=== PATIENT | female | born 1995 | race Caucasian/White ===

== ENCOUNTER 2019-06-10 11:18 | Emergency (ER) | payer SELFPAY ==
[2019-06-10] MEDS ORDERED: Lidocaine 2% Viscous Solution 15 ML Cup PO ONE (11:57)
[2019-06-10] MEDS ORDERED: Benzocaine 20% Topical Spray UD MUCMEM ONE (11:57)
--- NOTE | 2019-06-10 12:19 | EDM.PDOC ---
ED HPI GENERAL MEDICAL PROBLEM - General Chief Complaint: General Stated Complaint: MOUTH COMPLAINT Time Seen by Provider: 06/10/19 11:49 Source of Information: Reports: Patient History Limitations: Reports: No Limitations - History of Present Illness INITIAL COMMENTS - FREE TEXT/NARRATIVE: HISTORY AND PHYSICAL: History of present illness: Patient is a 24-year-old female who presents to the emergency room with complaints of some irritation along the lower gumline in her mouth. She states she is also had some vaginal irritation/discomfort. Denies any vaginal discharge , odor, or irregular bleeding. She has recently moved to [place] to be with her and had recently began having oral and vaginal intercourse ( states they hadn't had sex in awnhle due to distance). She is concerned she may have an STD in her mouth. Review of systems: As per history of present illness and below otherwise all systems reviewed and negative. Past medical history: As per history of present illness and as reviewed below otherwise noncontributory. Surgical history: As per history of present illness and as reviewed below otherwise noncontributory. Social history: See social history for further information Family history: As per history of present illness and as reviewed below otherwise noncontributory. Physical exam: General: Well-developed and well-nourished 24-year-old female. Alert and oriented. Nontoxic-appearing and in no acute distress. Patient has 2 small children with her at bedside. HEENT: Atraumatic, normocephalic, pupils equal and reactive bilaterally, negative for conjunctival pallor or scleral icterus, mucous membranes moist, irritation noted to the lower gumline along the bottom front teeth with small ulceration noted consistent with canker sore, TMs normal bilaterally, throat clear, neck supple, nontender, trachea midline. No drooling or trismus noted. No meningeal signs. No hot potato voice noted. Lungs: Clear to auscultation, breath sounds equal bilaterally, chest nontender. Heart: S1S2, regular rate and rhythm without overt murmur Abdomen: Soft, nondistended, nontender. Negative for masses or hepatosplenomegaly. Negative for costovertebral tenderness. Pelvis: Stable nontender. Skin: Intact, warm, dry. No lesions or rashes noted. Extremities: Atraumatic, moves all extremities per self without difficulty or deficits, negative for cords or calf pain. Neurovascular unremarkable. Neuro: Awake, alert, oriented. Cranial nerves II through XII unremarkable. Cerebellum unremarkable. Motor and sensory unremarkable throughout. Exam nonfocal. Notes: Patient declines wanting to have a pelvic exam. She is agreeable to swabbing per self and waiting for the testing to return. She is aware that gonorrhea and chlamydia as a send out. We did discuss in great length that she needs to establish care and follow-up with primary or RESIDENTIAL PROGRAM COORDINATOR for further evaluation and management. Supportive care measures were reviewed and discussed. Voices understanding and is agreeable to plan of care. Denies any further questions or concerns at this time. Diagnostics: Chlam/Giuseppe, Tric/BV Therapeutics: Dental Balls Prescription: Flagyl, Diflucan Impression: Bacterial vaginosis Candidiasis Canker sore Plan: 1. Please abstain from sexual intercourse until the lab results have returned. Always use protection to minimized risk of STD exposure 2. Take the medications as directed. The gonorrhea and chlamydia tests are send out labs, therefore will not be available for 2-3 business days. 3. Please follow-up with your primary care provider in the next 1-2 days. [facility] does offer free STD testing, please follow-up with them for further STD testing needs. Return to the ED as needed and as discussed. Definitive disposition and diagnosis as appropriate pending reevaluation and review of above. lower dental Pain Score (Numeric/FACES): 10 - Related Data Allergies Allergy/AdvReac Type Severity Reaction Status Date / Time No Known Allergies Allergy Verified 06/10/19 11:43 Home Meds: Home Meds . [No Known Home Meds] 06/10/19 [History] Past Medical History HEENT History: Reports: None Cardiovascular History: Reports: None Respiratory History: Reports: None Gastrointestinal History: Reports: None Genitourinary History: Reports: None RESIDENTIAL PROGRAM COORDINATOR History: Reports: None, Musculoskeletal History: Reports: None Neurological History: Reports: None Psychiatric History: Reports: None Endocrine/Metabolic History: Reports: None Hematologic History: Reports: None Immunologic History: Reports: None Oncologic (Cancer) History: Reports: None Dermatologic History: Reports: None - Past Surgical History Head Surgeries/Procedures: Reports: None HEENT Surgical History: Reports: None Cardiovascular Surgical History: Reports: None Respiratory Surgical History: Reports: None GI Surgical History: Reports: None Female Surgical History: Reports: Section Endocrine Surgical History: Reports: None Neurological Surgical History: Reports: None Musculoskeletal Surgical History: Reports: None Oncologic Surgical History: Reports: None Dermatological Surgical History: Reports: None Social & Family History - Family History Family Medical History: Noncontributory - Tobacco Use Smoking Status *Q: Current Every Day Smoker Years of Tobacco use: 7 Packs/Tins Daily: 1 - Caffeine Use Caffeine Use: Reports: None - Recreational Drug Use Recreational Drug Use: No ED ROS GENERAL - Review of Systems Review Of Systems: Comprehensive ROS is negative, except as noted in HPI. ED EXAM, GENERAL - Physical Exam Exam: See Below (See dictation) Course - Vital Signs Last Recorded V/S: Last Vital Signs Temp 97.3 F 06/10/19 11:43 Pulse 83 06/10/19 11:43 Resp 18 06/10/19 11:43 BP 112/49 L 06/10/19 11:43 Pulse Ox 98 06/10/19 11:43 - Orders/Labs/Meds Orders: Active Orders 24 hr Category Date Time Status CHLAMYDIA AND GONORRHEA BY TMA Stat Lab 06/10/19 11:56 Received Labs: Laboratory Tests 06/10/19 Range/Units 11:56 Irlanda species DNA POSITIVE H (NEGATIVE) Gardnerella DNA Probe POSITIVE H (NEGATIVE) Trichomonas DNA Probe NEGATIVE (NEGATIVE) Meds: Medications Discontinued Medications Generic Name Dose Route Start Last Admin Trade Name Freq PRN Reason Stop Dose Admin Benzocaine 2 each 06/10/19 11:57 06/10/19 12:07 Hurricaine One 20% MUCMEM 06/10/19 11:58 2 each ONETIME ONE Administration Lidocaine HCl 15 ml 06/10/19 11:57 06/10/19 12:07 Xylocaine 2% Viscous PO 06/10/19 11:58 15 ml ONETIME ONE Administration Departure - Departure Time of Disposition: 13:03 Disposition: Home, Self-Care 01 Clinical Impression: Bacterial vaginosis, Candidiasis, Canker sores oral - Discharge Information Instructions: Bacterial Vaginosis, [id number] Referrals: PCP,None [Primary Care Provider] - Forms: ED Department Discharge Additional Instructions: The following information is given to patients seen in the emergency department who are being discharged to home. This information is to outline your options for follow-up care. We provide all patients seen in our emergency department with a follow-up referral. The need for follow-up, as well as the timing and circumstances, are variable depending upon the specifics of your emergency department visit. If you don't have a primary care physician on staff, we will provide you with a referral. We always advise you to contact your personal physician following an emergency department visit to inform them of the circumstance of the visit and for follow-up with them and/or the need for any referrals to a consulting specialist. The emergency department will also refer you to a specialist when appropriate. This referral assures that you have the opportunity for follow-up care with a specialist. All of these measure are taken in an effort to provide you with optimal care, which includes your follow-up. Under all circumstances we always encourage you to contact your private physician who remains a resource for coordinating your care. When calling for follow-up care, please make the office aware that this follow-up is from your recent emergency room visit. If for any reason you are refused follow-up, please contact the [facility] at and asked to speak to the emergency department charge nurse. [facility] [address] [place] [address] [place] [address] 1. Please abstain from sexual intercourse until the lab results have returned. Always use protection to minimized risk of STD exposure 2. Take the medications as directed. Do not have any form of sexual intercourse while taking the Flagyl or the bacterial vaginosis will not resolve. The gonorrhea and chlamydia tests are send out labs, therefore will not be available for 2-3 business days. 3. Please follow-up with your primary care provider in the next 1-2 days. [facility] does offer free STD testing, please follow-up with them for further STD testing needs. Return to the ED as needed and as discussed. Sepsis Event Note - Evaluation Sepsis Screening Result: No Definite Risk - Focused Exam Vital Signs: Vital Signs Temp Pulse Resp BP Pulse Ox 06/10/19 11:43 97.3 F 83 18 112/49 L 98 Date Exam was Performed: 06/10/19 Time Exam was Performed: 13:08 - My Orders Last 24 Hours: My Active Orders 06/10/19 11:56 CHLAMYDIA AND GONORRHEA BY TMA Stat - Assessment/Plan Last 24 Hours: My Active Orders 06/10/19 11:56 CHLAMYDIA AND GONORRHEA BY TMA Stat
== END 2019-06-10 13:05 | disposition home or self-care (01) ==
LOC: MW.ED 11:18
DX: N76.0 Acute vaginitis (principal); B96.89 Other specified bacterial agents as the cause of diseases classified elsewhere; B37.0 Candidal stomatitis; K12.0 Recurrent oral aphthae; F17.210 Nicotine dependence, cigarettes, uncomplicated
CPT/HCPCS: 87480; 87491; 87510; 87591; 87660; 99283; A9270

== ENCOUNTER 2019-08-13 23:05 | Emergency (ER) | payer SELFPAY ==
[2019-08-13] MEDS ORDERED: Diphtheria,Pertussis(Acell),Tetanus Vaccine 0.5 ML Syringe IM ONE (23:17)
[2019-08-14] MEDS ORDERED: Lidocaine 1% 10 ML MDV INJECT ONE (00:20)
--- NOTE | 2019-08-14 00:36 | CR ---
Indication: Laceration. Foreign body Technique: Two views of the right foot Comparison: None available Findings: Bones: Alignment is normal. No fractures or bone lesions. Joint spaces: Unremarkable. Soft tissues: Soft tissue irregularity/injury at the plantar aspect of the forefoot, at the level of the proximal phalanges, with regional soft tissue swelling. No discrete radiopaque foreign body visualized. Impression: No acute fracture or dislocation. Plantar forefoot soft tissue injury. No discrete radiopaque soft tissue foreign body seen. Dictated by Demetris Feliciano MD @ 08/14/2019 12:35:15 AM Dictated by: Demetris Feliciano MD @ 08/14/2019 00:35:20 (Electronically Signed)
--- NOTE | 2019-08-14 01:04 | EDM.PDOC ---
ED HPI GENERAL MEDICAL PROBLEM - General Chief Complaint: Lower Extremity Injury/Pain Stated Complaint: LEFT LEG BLEEDING Time Seen by Provider: 08/13/19 23:09 Source of Information: Reports: Patient History Limitations: Reports: No Limitations - History of Present Illness INITIAL COMMENTS - FREE TEXT/NARRATIVE: This is a 24-year-old female who presents to the emergency room after stepping on a glass. Patient has the dorsal aspect of her foot bleeding. Patient has a large 5 cm laceration to the dorsal aspect of her foot around the ball of her foot. Patient does not know whether she has glass in her foot. Patient is uncertain about her tetanus status Onset: Today Duration: Hour(s): Location: Reports: Lower Extremity, Left Severity: Mild Improves with: Reports: None Context: Reports: Activity Associated Symptoms: Reports: No Other Symptoms righht foot Pain Score (Numeric/FACES): 10 - Related Data Allergies Allergy/AdvReac Type Severity Reaction Status Date / Time No Known Allergies Allergy Verified 08/13/19 23:17 Home Meds: Home Meds . [No Known Home Meds] 06/10/19 [History] Past Medical History HEENT History: Reports: None Cardiovascular History: Reports: None Respiratory History: Reports: None Gastrointestinal History: Reports: None Genitourinary History: Reports: None HAIR SPECIALIST History: Reports: None, Musculoskeletal History: Reports: None Neurological History: Reports: None Psychiatric History: Reports: None Endocrine/Metabolic History: Reports: None Hematologic History: Reports: None Immunologic History: Reports: None Oncologic (Cancer) History: Reports: None Dermatologic History: Reports: None - Infectious Disease History Infectious Disease History: Reports: None - Past Surgical History Head Surgeries/Procedures: Reports: None HEENT Surgical History: Reports: None Cardiovascular Surgical History: Reports: None Respiratory Surgical History: Reports: None GI Surgical History: Reports: None Female Surgical History: Reports: Section Endocrine Surgical History: Reports: None Neurological Surgical History: Reports: None Musculoskeletal Surgical History: Reports: None Oncologic Surgical History: Reports: None Dermatological Surgical History: Reports: None Social & Family History - Family History Family Medical History: Noncontributory - Tobacco Use Smoking Status *Q: Current Every Day Smoker Years of Tobacco use: 6 Packs/Tins Daily: 1 - Caffeine Use Caffeine Use: Reports: None - Recreational Drug Use Recreational Drug Use: No Review of Systems - Review of Systems Review Of Systems: See Below Constitutional: Reports: No Symptoms Eyes: Reports: No Symptoms Ears: Reports: No Symptoms Nose: Reports: No Symptoms Mouth/Throat: Reports: No Symptoms Respiratory: Reports: No Symptoms Cardiovascular: Reports: No Symptoms GI/Abdominal: Reports: No Symptoms Genitourinary: Reports: No Symptoms Musculoskeletal: Reports: No Symptoms Skin: Reports: Other (5 cm laceration to the foot) Neurological: Reports: No Symptoms Psychiatric: Reports: No Symptoms ED EXAM, GENERAL - Physical Exam Exam: See Below Exam Limited By: No Limitations General Appearance: Alert, WD/WN, No Apparent Distress Ears: Normal External Exam, Normal Canal Nose: Normal Inspection, Normal Mucosa Throat/Mouth: Normal Inspection Head: Atraumatic Neck: Normal Inspection Respiratory/Chest: No Respiratory Distress Cardiovascular: Normal Peripheral Pulses Rectal (Female) Exam: Deferred Back Exam: Normal Inspection Extremities: Other (Patient has a 5 cm laceration to the ball of her left foot) Neurological: Alert, Oriented, CN II-XII Intact Psychiatric: Normal Affect Skin Exam: Warm Lymphatic: No Adenopathy ED TRAUMA EXTREMITY PROCEDURES - Laceration/Wound Repair Left Foot Lac/Wound Length In cm: 5 Appearance: Subcutaneous, Mildly Contaminated Distal NVT: Neuro & Vascular Intact, No Tendon Injury Anesthetic Type: Local Local Anesthesia - Lidocaine (Xylocaine): 1% Plain Local Anesthetic Volume: 5cc Skin Prep: Chlorhexidine (Hibiciens), Providone-Iodine (Betadine) Saline Irrigation (cc's): 20 Exploration/Debridement/Repair: Wound Explored, In a Bloodless Field Suture Size: 4-0 # of Sutures: 9 Suture Type: Nylon Drain Placement: No Sterile Dressing Applied: Provider Tetanus Status Addressed: Yes Complications: No Course - Vital Signs Last Recorded V/S: Last Vital Signs Temp 98.1 F 08/13/19 23:18 Pulse 130 H 08/13/19 23:18 Resp 18 08/13/19 23:18 BP 112/74 08/13/19 23:18 Pulse Ox 99 08/13/19 23:18 - Orders/Labs/Meds Orders: Active Orders 24 hr Category Date Time Status Vaccines to be Administered [RC] PER UNIT ROUTINE Care 08/13/19 23:17 Active Labs: Laboratory Tests 08/13/19 Range/Units 23:33 HCG, Qual NEGATIVE (NEG) Meds: Medications Discontinued Medications Generic Name Dose Route Start Last Admin Trade Name Sierra PRN Reason Stop Dose Admin Diphtheria/Tetanus/Acell Pertussis 0.5 ml 08/13/19 23:17 Adacel IM 08/13/19 23:18 .ONCE ONE Lidocaine HCl 10 ml 08/14/19 00:20 Xylocaine 1% INJECT 08/14/19 00:21 ONETIME ONE Lidocaine HCl Confirm 08/14/19 00:23 Xylocaine-Mpf 1% Administered 08/14/19 00:24 Dose 10 ml .ROUTE .STK-MED ONE Departure - Departure Time of Disposition: 01:05 Disposition: Home, Self-Care 01 Condition: Good Clinical Impression: Laceration of left foot - Discharge Information Instructions: Laceration Care, Adult, Sutured Wound Care, [id number] Referrals: PCP,None [Primary Care Provider] - Additional Instructions: Patient to follow-up in 7 to 10 days for suture removal Patient to return for severe pain swelling or redness of the foot. Remove dressing after 24 hours. Sepsis Event Note - Evaluation Sepsis Screening Result: No Definite Risk - Focused Exam Vital Signs: Vital Signs Temp Pulse Resp BP Pulse Ox 08/13/19 23:18 98.1 F 130 H 18 112/74 99 Date Exam was Performed: 08/14/19 Time Exam was Performed: 00:59 - My Orders Last 24 Hours: My Active Orders 08/13/19 23:17 Vaccines to be Administered [RC] PER UNIT ROUTINE - Assessment/Plan Last 24 Hours: My Active Orders 08/13/19 23:17 Vaccines to be Administered [RC] PER UNIT ROUTINE
== END 2019-08-14 01:24 | disposition home or self-care (01) ==
LOC: MW.ED 23:05
DX: S91.311A Laceration without foreign body, right foot, initial encounter (principal); Z23 Encounter for immunization; F17.210 Nicotine dependence, cigarettes, uncomplicated; W22.8XXA Striking against or struck by other objects, initial encounter
CPT/HCPCS: 12002; 36415; 73620; 84703; 90471; 90715; 99283; J2001

== ENCOUNTER 2019-08-21 17:34 | Emergency (ER) | payer SELFPAY | END 2019-08-21 18:00 | disposition home or self-care (01) | LOC: MW.ED 17:34 | DX: Z53.21 Procedure and treatment not carried out due to patient leaving prior to being seen by health care provider (principal) ==